=== PATIENT | male | born 2000 | race Caucasian/White ===

== ENCOUNTER 2019-08-01 08:56 | Emergency (ER) | payer BC, SELFPAY ==
[2019-08-01 08:57] VITALS: BP 135/82; PULSE 69; RESP 18; TEMP 36.9; O2SAT 100; BMI 22.1
--- NOTE | 2019-08-01 09:07 | [facility].EDGENADL ---
ED Disposition Clinical Impression: Puncture wound, hand Qualifiers: Encounter type: initial encounter Foreign body presence: without foreign body Laterality: right Qualified Code(s): S61.431A - Puncture wound without foreign body of right hand, initial encounter Disposition: Home, Self-Care Condition on Discharge: Good Instructions: DI for Puncture Wound Additional Instructions: Keflex as prescribed. Return to the emergency department if the wound is becoming more painful, more swollen, red or hot, draining pus, developing red streaks, or if you develop a fever. Prescriptions: cephALEXin [Keflex 500mg Cap] 500 mg PO QID #28 cap Transmission Status: Received by [id number] Referrals: Hossein Culp MD [Primary Care Provider] - - Critical Care Critical Care Time: No Attestation: On , the high probability of a clinically significant, sudden or life threatening deterioration of the following system(s) required my full and direct attention, intervention and personal management. The time I documented below is in addition to time spent performing reported procedures but includes the following listed in this critical care notation. Medical Decision Making - Janusz Inquiry Pt receiving controlled substance: No Vital Signs: 08/01/19 08:57 Temperature 98.5 F Temperature Source Oral Pulse Rate [Right] 69 Respiratory Rate 18 Blood Pressure [Right Arm] 135/82 Blood Pressure Mean [Right Arm] 99 02 Sat by Pulse Oximetry 100 Orders (Tests/Meds): ED MEDICATIONS Discontinued Medications Generic Name Dose Route Start Last Admin Trade Name Freq PRN Reason Stop Dose Admin Tetanus/Reduced Diphtheria/Acell Pertussis 0.5 ml 08/01/19 09:06 08/01/19 09:08 Adacel Tdap 0.5ml Syringe IM 08/01/19 09:07 0.5 ml .ONCE ONE Administration General Adult HPI - General Chief complaint: Skin/Abscess/Foreign Body Stated complaint: tetna shot Time Seen by Provider: 08/01/19 09:03 Mode of Arrival: Ambulatory Limitations: No Limitations Description of Symptoms (Recalled from ER Triage Doc. by RN): Pt states while he was working a week ago he had a wendy nail cut his right palm and needs a tdap vaccine. Pt states he does not want any other treatment but a tdap. - History of Present Illness HPI narrative: Patient states that yesterday at work he punctured himself with a nail in his right thenar eminence. He says it does not hurt, just sore when he moves his thumb where he thinks it punctured the muscle. He says it was an old male, part of a barn roof from a bar and they were tearing down. The nail had been laying on the ground for about a week. He says he cleaned the wound well. He says he needs a tetanus shot. No fever or drainage. He was not wearing a glove. - Related Data Previous Rx's Medication Instructions Recorded Ondansetron [Zofran 4mg ODT] 4 mg PO Q8H PRN #9 tab.rapdis 10/02/17 cephALEXin [Keflex 500mg Cap] 500 mg PO QID #28 cap 08/01/19 Allergies Allergy/AdvReac Type Severity Reaction Status Date / Time clarithromycin Allergy Verified 10/02/17 15:38 [facility] History - Hepatitis A Screen Drug use history?: No High risk sexual behaviors?: No History of sexually transmitted infection?: No Currently employed?: No Childcare worker?: No Do you have indoor plumbing?: Yes Do you have electricity?: Yes Attestation statement:: This patient has been screened for Hepatitis A risk factors. I have reviewed the patient's past medical history: Yes Medical History: Denies:: Cancer, Diabetes Mellitus Type 1, Diabetes Mellitus Type 2, Hypertension, MRSA Other Surgeries: Yes: No Previous Surgery Amputation: No Fractures: No - Social History Smoking Status: Never smoker Alcohol Intake: never Occupational Status: employed ROS Obtained: Yes Systems reviewed as appropriate & no additional complaints - Constitutional Constitutional: Denies fever(s) - Musculoskeletal Mus
[2019-08-01 09:47] VITALS: BP 130/87; PULSE 80; RESP 20; TEMP 36.8; O2SAT 98
== END 2019-08-01 09:48 | disposition home or self-care (01) ==
PROVIDERS: Emergency Provider Emergency Medicine; PCP Family Medicine
DX: S61.431A Puncture wound without foreign body of right hand, initial encounter (principal); W45.0XXA Nail entering through skin, initial encounter; Y92.71 Barn as the place of occurrence of the external cause; Z23 Encounter for immunization
CPT/HCPCS: 90471; 90715; 99281